=== PATIENT | male | born 1970 | race Caucasian/White ===

== ENCOUNTER → 2021-09-04 12:13 | Outpatient (BNVA) | payer OTHER, SELFPAY | PROVIDERS: Family Provider Nurse Practitioner Family; PCP Nurse Practitioner Family; Visit Provider Surgery | DX: Z20.822 Contact with and (suspected) exposure to COVID-19 (principal); Z11.52 Encounter for screening for COVID-19 | CPT/HCPCS: 87635 ==

== ENCOUNTER 2021-09-06 07:22 | Day surgery (SDC) | payer OTHER, SELFPAY ==
[2021-09-05 11:00] VITALS: BMI 27.5
[2021-09-06] VITALS (7 sets, daily range): BP systolic 127–154; BP diastolic 78–101; PULSE 59–78; RESP 12–18; TEMP 36.4–36.7; O2SAT 95–99
--- NOTE | 2021-09-06 07:53 | ANES.PREANE2 ---
Pre-Anesthetic Assessment Pre-Anesthetic Assessment: Height/Weight: Height 1.91 m Weight 99.79 kg Temp Pulse Resp BP Pulse Ox 97.9 F 78 16 154/101 95 09/06/21 07:35 09/06/21 07:35 09/06/21 07:35 09/06/21 07:35 09/06/21 07:35 Preop Diagnosis: Screening colonoscopy, mass on the back Proposed Procedure: Operation Date: 09/06/21 08:40 Proposed Procedures p Excision Back Mass 08100 R22.2(Not Applicable) - Placido De Paz MD s Colonoscopy 41820 Z12.11(Not Applicable) - Placido De Paz MD Was Beta Viktor taken within 24 hours: N/A Was Clonidine taken within 24 hours: N/A Social: Social History: No alcohol and No tobacco Exam: Pre-Anes Outpt Exam: alert, oriented x 3, clear to auscultation bilaterally and regular rate & rhythm Airway: Submandibular: WNL Cervical ROM: WNL MP: 2 Dentition: Chipped History/ROS: No significant history except as noted Anesthetic Plan: ASA status: 1 Anesthesia: MAC Risk of > 500 ml blood loss (7ml/kg in children): No PFSH Anesthesia PFSH: Social History Smoking and tobacco status: former smoker Data Anesthesia Cardiac Studies: No Data to Display
--- NOTE | 2021-09-06 08:02 | W.PM.OPSFHP ---
Same Day Surgery H&P Indication for Procedure/HPI DATE OF PROCEDURE: September 06, 2021 CHIEF COMPLAINT/INDICATIONFOR SURGICAL PROCEDURE: screening colonoscopy / mass back PREOP DIAGNOSIS: Screening colonoscopy, mass on the back PLANNED PROCEDRUE: Operation Date: 09/06/21 08:40 Proposed Procedures p Excision Back Mass 28317 R22.2(Not Applicable) - Placido De Paz MD s Colonoscopy 04400 Z12.11(Not Applicable) - Placido De Paz MD Medications/Allergies* Home Medications Medication Instructions Recorded Confirmed Type aspirin 81 mg tablet,delayed 81 mg PO DAILY 08/21/21 09/06/21 History release tramadol 50 mg tablet 50 mg PO DAILY 08/21/21 09/06/21 History Allergies/Adverse Reactions Allergy/AdvReac Type Severity Reaction Status Date / Time No Known Allergies Allergy Unverified 09/05/21 10:59 Pertinent History/Comorbid Conditions* Social History Smoking and tobacco status: former smoker Pertinent Exam Findings alert, oriented x 3 and regular rate & rhythm Recommendations Surgery/Procedure today Coding Level of Care Code Acute Osteopathy Doctor for Giancarlo Fraser
[2021-09-06] MEDS: sodium chloride 0.9% 1,000 ML 30 ML IV (08:10)
--- NOTE | 2021-09-06 08:54 | PM.OP ---
Operative Report Date of procedure: September 06, 2021 Pre-op Diagnosis: Screening colonoscopy, mass on the back Post-op Diagnosis: 1. Mild sigmoid diverticulosis 2. Sebaceous cyst 2 x 2 cm on the back Procedure Done: 1. Screening colonoscopy past splenic flexure without biopsy 2. Excision of sebaceous cyst on the back Specimens removed/disposition: Sebaceous cyst on the back Surgeon: Placido De Paz Anesthesia: MAC Condition: stable Disposition: PACU Procedure: The patient was taken to the operating room and placed in left lateral position under MAC a digital rectal exam revealed small internal hemorrhoids. The colonoscope was introduced and advanced up to cecum with ileocecal valve and appendicular orifice was visualized. The colon prep was fair. Cecum: Normal Ascending colon: Normal Transverse colon: Normal Descending colon: Normal Sigmoid colon: Scattered diverticulosis Rectum: Small internal hemorrhoids The colonoscope was withdrawn. There area around the palpable mass on the lower back was prepped and draped in a sterile manner. 1% lidocaine with 0.5% Marcaine was infiltrated around the palpable mass. Using a 15 blade and elliptical incision was made incorporating the punctum and the cyst was dissected free from the surrounding subcutaneous tissue and underlying muscular fascia and sent to pathology in formalin. Wound was irrigated with saline, hemostasis was ensured and subcutaneous tissues were approximated using interrupted 3-0 Vicryl suture and skin was closed using running subcuticular 4-0 Monocryl suture and Dermabond. Sterile dressings were applied. Patient was transferred to recovery room in stable condition.
[2021-09-06] MEDS: fentaNYL 50 mcg/mL INJ 2mL IVP (09:31)
--- NOTE | 2021-09-06 10:23 | SUR.PHASEII ---
09:30 patient medicated for pain per doctor Diaz.
--- NOTE | 2021-09-06 13:20 | ANE.PACU2 ---
Inpatient post-anesthesia follow up: Airway intact: Yes Vital signs: Temperature 98.0 F Pulse Rate 62 Respiratory Rate 14 Blood Pressure 147/98 Pulse Oximetry 98 Oxygen Delivery Me thod Room Air Oxygen Flow Rate Fraction of Inspir ed Oxygen Hydration adequate: Yes Nausea and vomiting: No Pain level: 2 Mental status: Baseline
== END 2021-09-06 11:05 | disposition home or self-care (01) ==
PROVIDERS: PCP Nurse Practitioner Family; Visit Provider Surgery
PROC: (CPT 11402; principal; 2021-09-06 08:40)
PROC: 0DJD8ZZ Inspection of Lower Intestinal Tract, Via Natural or Artificial Opening Endoscopic (ICD-10-PCS; CPT 45378; 2021-09-06 08:40)
DX: Z12.11 Encounter for screening for malignant neoplasm of colon (principal); K57.30 Diverticulosis of large intestine without perforation or abscess without bleeding; L72.3 Sebaceous cyst; K64.8 Other hemorrhoids; Z79.82 Long term (current) use of aspirin; Z87.891 Personal history of nicotine dependence
CPT/HCPCS: 11402; 12031; 45378; 88304; 96365; 96374; J0690; J2704; J3010; J3490; J7030

== ENCOUNTER → 2022-12-19 16:31 | Outpatient (BNVA) | payer OTHER, SELFPAY | PROVIDERS: PCP Nurse Practitioner Family; Visit Provider Nurse Practitioner Family | DX: M54.9 Dorsalgia, unspecified (principal); G89.29 Other chronic pain; Z13.220 Encounter for screening for lipoid disorders; Z12.5 Encounter for screening for malignant neoplasm of prostate; L20.9 Atopic dermatitis, unspecified; D17.1 Benign lipomatous neoplasm of skin and subcutaneous tissue of trunk | CPT/HCPCS: 80053; 80061; G0103 ==

== ENCOUNTER → 2024-03-09 15:48 | Outpatient (BNVA) | payer OTHER, SELFPAY | PROVIDERS: PCP Nurse Practitioner Family; Visit Provider Nurse Practitioner Family | DX: M54.9 Dorsalgia, unspecified (principal); G89.29 Other chronic pain; E78.2 Mixed hyperlipidemia; F33.41 Major depressive disorder, recurrent, in partial remission | CPT/HCPCS: 80053; 80061; 85025 ==

== ENCOUNTER 2025-10-05 11:45 | Outpatient (CLI) | payer OTHER, SELFPAY ==
[2025-10-05 12:22] VITALS: BMI 28.7
--- NOTE | 2025-10-05 12:23 | ECG_ITS ---
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 Baseline heart rate was 114 beats per minute. Baseline blood pressure was 168/103 millimeters of mercury. Target heart rate was 164 beats per minute. Maximum heart rate achieved was 157, which was 95 % of the target heart rate. Maximum blood pressure was 206/113 millimeters of mercury. Total exercise time was 10 minutes 21 seconds. Maximum METs achieved was 13.5 maximum VO2 was 47.3. The reason for ending the test was maximum effort achieved. The patient complained of shortness of breath during the stress test, which then resolved at the end of the test. ELECTROCARDIOGRAM: BASELINE: Showed sinus rhythm, normal axis, no significant ST-T changes at the baseline noted. EXERCISE: At the peak exercise level, no significant ST-T changes suggestive of ischemia noted. RECOVERY: During the recovery period, heart rate dropped appropriately. No significant ST-T changes in the recovery suggestive of ischemia noted. CONCLUSION: 1. Exercise capacity good 2. Heart rate response was appropriate. 3. Blood pressure response was hypertensive. 4. Symptoms not suggestive of ischemia. 5. Electrocardiogram portion of the stress test was not suggestive of ischemia. Electronically Signed On 10-07-2025 15:36:45 [employer] ESC[employer] by HERMES MENDEZ [email or web address]
[2025-10-05 13:35] VITALS: BP 189/98; PULSE 109
== END 2025-10-05 11:46 | disposition home or self-care (01) ==
LOC: CDL 11:50
PROVIDERS: PCP Internal Medicine; Visit Provider Internal Medicine
DX: R00.2 Palpitations (principal)
CPT/HCPCS: 93017